=== PATIENT | female | born 1945 | race Caucasian/White ===

== ENCOUNTER 2018-11-16 21:11 | Emergency (ER) | payer MEDICARE, SELFPAY ==
[2018-11-16 21:21] VITALS: BP 192/82; PULSE 72; RESP 22; TEMP 36.4; O2SAT 99
--- NOTE | 2018-11-16 21:37 | ED.CHESTPAIN ---
HPI - Chest Pain General Chief Complaint: Chest Pain Stated Complaint: SOB,States Elevated BP Time Seen by Provider: 11/16/18 21:29 Source: patient Mode of arrival: ambulatory Limitations: no limitations History of Present Illness HPI narrative: The patient is a 73-year-old female who presents with increasing shortness of breath. She has a history of COPD AFib and coronary artery disease. She is on Coumadin for her atrial fibrillation. She says she flew here from [place] a few days ago and since then has noticed increasing shortness of breath with exertion. She denies any cough fever or body aches. She has been using her inhaler for COPD does not feel like it is better. She denies any orthopnea or lower extremity edema MD complaint: chest pain Related Data Previous Rx's Medication Instructions Recorded prednisone 40 mg PO DAILY #10 tab 11/17/18 Allergies Allergy/AdvReac Type Severity Reaction Status Date / Time codeine Allergy Intermediate Palpitation Verified 11/16/18 21:25 s Review of Systems Review of Systems ROS Unobtainable: All systems reviewed & are unremarkable except as noted in HPI and below Constitutional Denies chills, Denies fever(s), Denies lethargy and Denies weakness Cardiovascular Reports as per HPI, Reports chest pain, Denies rapid heart rate, Denies pedal edema, Reports irregular heart rhythm and Reports dyspnea on exertion Respiratory Denies cough, Reports dyspnea on exertion and Denies wheezing Gastrointestinal Gastrointestinal: Denies abdominal pain, Denies change in bowel habits, Denies diarrhea, Denies nausea and Denies vomiting Musculoskeletal Denies back pain, Denies muscle weakness, Denies numbness and Denies tingling Integumentary/Breasts Denies pruritus, Denies erythema, Denies rash and Denies wounds Neurologic Denies numbness, Denies tingling and Denies weakness Allergic/Immunologic Denies wheezing PFSH Medical History Atrial fibrillation (Acute) COPD (chronic obstructive pulmonary disease) (Acute) Coronary artery disease (Acute) Diabetes (Acute) Social History Smoking Status: Never smoker Social History Smoking Status: Never smoker Exam Initial Vital Signs Initial Vital Signs: Vital Signs Temperature 97.6 F 11/16/18 21:21 Pulse Rate 72 11/16/18 21:21 Respiratory Rate 22 11/16/18 21:21 Blood Pressure 192/82 H 11/16/18 21:21 Pulse Oximetry 99 11/16/18 21:21 GENERAL: Well-appearing, well-nourished and in no acute distress. HEENT: Head atraumatic,EOMI, pupils reactive, CARDIOVASCULAR: Irregularly irregular no murmur RESPIRATORY: Breath sounds equal bilaterally, no wheezes rales or rhonchi. ABDOMEN: Soft, nontender. Normoactive bowel sounds all 4 quadrants. No guarding or rebound. EXTREMITIES: Normal range of motion, no clubbing or edema. Neurovascularly intact NEUROLOGICAL: Alert and oriented x4.Normal gait and speech. SKIN: Warm, dry, no laceration, no petechiae, no rashes or lesions. Course Orders Ordered: ED Orders 11/16/18 21:42 Consult to Respiratory Therapy Evaluate & Treat 11/16/18 21:43 XR chest 1V Stat 11/16/18 22:00 B Type Natriuretic Peptide Stat Complete Blood Count AUTO DIFF Stat Comprehensive Metabolic Panel Stat Magnesium Stat Partial Thromboplastin Time Stat Prothrombin Time INR Stat Troponin & CK Cardiac Panel Stat 11/16/18 23:24 CT angio chest PE protocol Stat Discontinued Medications Albuterol/Ipratropium (Duoneb) 3 ml INH NOW ONE Stop: 11/16/18 21:43 Last Admin: 11/16/18 21:59 Dose: 3 ml Methylprednisolone (Solu-Medrol 125 Mg Vial) 125 mg IV NOW ONE Stop: 11/16/18 21:43 Last Admin: 11/16/18 23:50 Dose: 125 mg Vital Signs - 8 hr 11/16/18 21:21 11/16/18 21:59 11/16/18 23:53 Temperature 97.6 F Pulse Rate 72 75 77 Respiratory Rate 22 18 20 Blood Pressure 192/82 H Blood Pressure [Right Arm] 154/66 H Pulse Oximetry 99 97 95 11/17/18 00:49 Temperature Pulse Rate 76 Respiratory Rate 19 Blood Pressure Blood Pressure [Right Arm] 163/75 H Pulse Oximetry 94 MDM - Chest Pain Lab Data Attestation: I reviewed the patient's lab results. Result diagrams: 11/16/18 22:00 11/16/18 22:00 Lab Results 11/16/18 11/16/18 11/16/18 Range/Units 22:00 22:00 22:00 WBC 8.6 (4.5-11.0) X10^3/uL RBC 5.32 H (4.0-5.2) X10^6/uL Hgb 14.1 (12.0-16.0) g/dL Hct 42.9 (36-46) % MCV 80.7 (80-100) fL MCH 26.4 (26-34) PG MCHC 32.7 (30-36) % RDW 14.9 H (11.6-14.8) % Plt Count 237 (150-400) X10^3/uL Neut % (Auto) 71.0 (50-75) % Lymph % (Auto) 19.8 L (25-40) % Sandoval % (Auto) 4.9 (3-14) % Eos % (Auto) 3.5 (2-4) % Baso % (Auto) 0.8 (0-2) % Neut # (Auto) 6100 (7108-3702) /uL Lymph # (Auto) 1700 (0118-6766) /uL Sandoval # (Auto) 400 (0-900) /uL Eos # (Auto) 300 (0-450) /uL Baso # (Auto) 100 (0-100) /uL PT 28.3 H (10.1-12.7) SECONDS INR 2.4 H (0.9-1.3) APTT 54 H (26.4-36.2) SECONDS Sodium 136 L (137-145) mmol/L Potassium 3.9 (3.4-5.1) mmol/L Chloride 98 (98-107) mmol/L Carbon Dioxide 28 (22-32) mmol/L BUN 17 (7-17) mg/dL Creatinine 1.00 (0.52-1.04) mg/dL Estimated GFR 54.3 L (>60) mL/min BUN/Creatinine Ratio 17.0 (6-22) Glucose 177 H (80-110) mg/dL Calcium 8.8 (8.4-10.2) mg/dL Magnesium 1.8 (1.6-2.3) mg/dL Total Bilirubin 0.6 (0.2-1.3) mg/dL AST 40 H (14-36) IU/L ALT 55 H (9-52) IU/L Alkaline Phosphatase 62 (38-126) U/L Total Creatine Kinase 88 (30-135) U/L CK-MB (CK-2) TNP CK-MB (CK-2) Rel Index TNP Troponin I < 0.012 (0.01-0.034) ng/mL B-Natriuretic Peptide < 100 (<100) Total Protein 7.5 (6.3-8.2) g/dL Albumin 4.3 (3.5-5.0) g/dL Globulin 3.2 (1.7-4.1) g/dL Albumin/Globulin Ratio 1.3 (1.0-2.8) Imaging Data CT scan - chest: Radiologist's impression: trauma registrar report no evidence of pulmonary embolism interstitial pattern suggests mild interstitial edema ECG Data Attestation: I personally reviewed and interpreted this ECG as follows: Prior ECG tracings: not available for review Interpretation: Atrial fibrillation rate [address] T no priors to compare MDM Narrative Medical decision making narrative: Patient is afebrile no leukocytosis no infectious symptoms. His she has dyspnea with exertion. She does not feel like bronchodilators have helped her. She is in a new environment. PE study is negative. His ambulation trial heart rate remains stable along with O2. At this time will be discharged home with prednisone. Discharge Plan Departure Patient Disposition: Home Clinical Impression: COPD (chronic obstructive pulmonary disease) Qualifiers: COPD type: unspecified COPD Qualified Code(s): J44.9 - Chronic obstructive pulmonary disease, unspecified Discharge Date/Time: 11/17/18 01:22 Interventions: ED Discharge Assessment Last Done: 11/17/18 01:20 Instructions: Chronic Obstructive Pulmonary Disease Activity Restrictions/Additional Instructions: *You have been diagnosed with COPD exacerbation *What to do: Blood work and EKG are reassuring. No sign of infection. *Continue to take medications as directed Prednisone 40 mg once a day for 5 days *Follow up with your primary care provider in 2-3 days *Return to ER if you should have increasing shortness of breath fever productive cough his chest pain, heart palpitations or any new, worsening or concerning symptoms Prescriptions: New prednisone 20 mg tablet 40 mg PO DAILY Qty: 10 RF: 0
--- NOTE | 2018-11-16 21:43 | DI.RAD.S_ITS ---
PROCEDURE: XR CHEST 1V INDICATIONS: short of breath TECHNIQUE: One view of the chest was acquired. COMPARISON: None. FINDINGS: Surgical changes and devices: None. Lungs and pleura: Lungs are clear. No pleural effusions or pneumothorax. Mediastinum: Mediastinal contours appear normal. Heart size is normal. Bones and chest wall: No suspicious bony lesions. Overlying soft tissues appear unremarkable. IMPRESSION: No acute cardiopulmonary disease process. Dictated by: Ashlyn Jauregui MD, PhD on 11/16/2018 at 22:12 Approved by: Ashlyn Jauregui MD, PhD on 11/16/2018 at 22:13
[2018-11-16 21:59] VITALS: PULSE 75; RESP 18; O2SAT 97
[2018-11-16] MEDS: ALBUTEROL/IPRATROPIUM 3 ML AMPUL INH (21:59)
[2018-11-16 22:08] LABS: Add Manual Diff / Slide Review NO; Basophils Absolute Auto 100 /uL (0-100); Basophils Percent Auto 0.8 % (0-2); Eosinophils Absolute Auto 300 /uL (0-450); Eosinophils Percent Auto 3.5 % (2-4); Hematocrit 42.9 % (36-46); Hemoglobin 14.1 g/dL (12.0-16.0); Lymphocytes Absolute Auto 1700 /uL (1100-4500); Lymphocytes Percent Auto 19.8 % (25-40); Mean Corpuscular HGB Conc 32.7 % (30-36); Mean Corpuscular Hemoglobin 26.4 PG (26-34); Mean Corpuscular Volume 80.7 fL (80-100); Monocytes Absolute Auto 400 /uL (0-900); Monocytes Percent Auto 4.9 % (3-14); Neutrophils Absolute Auto 6100 /uL (1500-7000); Platelet Count 237 X10^3/uL (150-400); Red Blood Cell Count 5.32 X10^6/uL (4.0-5.2); Red Cell Distribution Width 14.9 % (11.6-14.8); White Blood Cell Count 8.6 X10^3/uL (4.5-11.0)
[2018-11-16 22:13] LABS: INR 2.4 (0.9-1.3); Prothrombin Time 28.3 SECONDS (10.1-12.7)
[2018-11-16 22:15] LABS: Alanine Aminotransferase 55 IU/L (9-52); Albumin 4.3 g/dL (3.5-5.0); Albumin Globulin Ratio 1.3 (1.0-2.8); Alkaline Phosphatase 62 U/L (38-126); Aspartate Aminotransferase 40 IU/L (14-36); Bilirubin Total 0.6 mg/dL (0.2-1.3); Blood Urea Nitrogen 17 mg/dL (7-17); Calcium 8.8 mg/dL (8.4-10.2); Carbon Dioxide 28 mmol/L (22-32); Chloride 98 mmol/L (98-107); Creatine Kinase 88 U/L (30-135); Estimated Glomerular Filt Rate 54.3 mL/min (>60); Globulin 3.2 g/dL (1.7-4.1); Glucose 177 mg/dL (80-110); HEMOLYSIS 36 (0-50); Magnesium 1.8 mg/dL (1.6-2.3); PTT Partial Thromboplastin Tim 54 SECONDS (26.4-36.2); Potassium 3.9 mmol/L (3.4-5.1); Sodium 136 mmol/L (137-145); Total Protein 7.5 g/dL (6.3-8.2)
[2018-11-16 22:25] LABS: B Type Natriuretic Peptide < 100 (<100)
[2018-11-16 22:26] LABS: Troponin I < 0.012 ng/mL (0.01-0.034)
--- NOTE | 2018-11-16 22:35 | PC.NURSE ---
[employer] air [employer] service technician reports IV infiltration of 84ml Of IV contrast in patients arm during CT. Line pulled and hot compress applied to patient arm in CT
--- NOTE | 2018-11-16 23:24 | DI.CT.S_ITS ---
PROCEDURE: CT ANGIO CHEST PE PROTOCOL INDICATIONS: short of breath flew from [place] TECHNIQUE: After the administration of intravenous contrast, 2 mm thick sections acquired from the pulmonary apices to the posterior costophrenic angles. 3-dimensional maximum intensity projection (MIP) coronal and sagittal reformats were then acquired through the thorax. For radiation dose reduction, the following was used: automated exposure control, adjustment of mA and/or kV according to patient size. COMPARISON: None. FINDINGS: Image quality: Excellent. Pulmonary arteries: Pulmonary arteries are normal in size, and demonstrate no intraluminal filling defects to suggest central pulmonary embolism. Lungs and pleura: There is mild basilar predominant interstitial and groundglass density diffusely. No pleural effusions or pneumothorax. Central and peripheral airways are patent. Mediastinum: Heart size is normal, without pericardial effusion. There is calcification of the coronary vasculature. 14 mm short axis subcarinal adenopathy. 17 mm short axis right hilar adenopathy. 17 mm short axis left hilar adenopathy. 16 mm short axis subcarinal adenopathy. Thoracic aorta is normal in caliber and enhancement. Esophagus is normal in caliber, without hiatal hernia. Bones and chest wall: No suspicious bony lesions. Ribs and thoracic spine appear intact throughout. Thyroid gland is within normal limits. No axillary or supraclavicular adenopathy. Abdomen: Visualized portions of the upper abdomen demonstrate diffusely decreased density, indicating fatty infiltration IMPRESSION: 1. No pulmonary embolus. 2. Bilateral pulmonary opacities with associated mediastinal and hilar adenopathy, most suggestive of pneumonia with reactive lymphadenopathy. Followup chest CT with contrast is recommended to ensure resolution, and to exclude underlying malignancy. 3. Coronary artery disease. 4. Concordant with preliminary interpretation. Dictated by: Uche Carrasco M.D. on 11/17/2018 at 10:18 Approved by: Uche Carrasco M.D. on 11/17/2018 at 10:22
[2018-11-16] MEDS: methylPREDNISolone 125 MG/2 ML VIAL IV (23:50)
[2018-11-16 23:53] VITALS: BP 154/66; PULSE 77; RESP 20; O2SAT 95
[2018-11-17 00:49] VITALS: BP 163/75; PULSE 76; RESP 19; O2SAT 94
== END 2018-11-17 01:22 | disposition home or self-care (01) ==
PROVIDERS: Emergency Provider Emergency Medicine
DX: J44.9 Chronic obstructive pulmonary disease, unspecified (principal); I48.91 Unspecified atrial fibrillation; Z79.01 Long term (current) use of anticoagulants
CPT/HCPCS: 36591; 71045; 71275; 80053; 82550; 83735; 83880; 84484; 85025; 85610; 85730; 93005; 93041; 94640; 96374; 99283; 99285; J2930; Q9967